=== PATIENT | female | born 1975 | race Caucasian/White ===

== ENCOUNTER → 2024-04-04 06:38 | Outpatient (REF) | payer BC, SELFPAY | LOC: HWWDC 06:38 | PROVIDERS: ATTENDING PHYSICIAN Obstetrics & Gynecology Gynecology; FAMILY PHYSICIAN Family Medicine | DX: Z12.31 Encounter for screening mammogram for malignant neoplasm of breast (principal) | CPT/HCPCS: 77063; 77067 ==

== ENCOUNTER → 2024-08-06 08:18 | Outpatient (REF) | payer BC, SELFPAY | LOC: RAD 08:18 | PROVIDERS: ATTENDING PHYSICIAN Nurse Practitioner; FAMILY PHYSICIAN Family Medicine | DX: R22.1 Localized swelling, mass and lump, neck (principal) | CPT/HCPCS: 76536 ==

== ENCOUNTER → 2025-06-11 06:41 | Outpatient (REF) | payer OTHER, SELFPAY | LOC: HWWDC 06:41 | PROVIDERS: ATTENDING PHYSICIAN Family Medicine; REFERRING PHYSICIAN Obstetrics & Gynecology Gynecology | DX: Z12.31 Encounter for screening mammogram for malignant neoplasm of breast (principal) | CPT/HCPCS: 77063; 77067 ==